=== PATIENT | male | born 2005 | race Caucasian/White ===

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

== ENCOUNTER 2025-06-12 19:52 | Emergency (ER) | payer BC, SELFPAY ==
[2025-06-12] VITALS (7 sets, daily range): BP systolic 124–170; BP diastolic 74–97; PULSE 68–100; RESP 15–20; TEMP 37.1; O2SAT 100; BMI 29.7
--- NOTE | 2025-06-12 21:18 | EKG12_ITS ---
Test Reason : DYSRHYTHMIA Blood Pressure : */* mmHG Vent. Rate : 73 BPM Atrial Rate : 73 BPM P-R Int : 142 ms QRS Dur : 86 ms QT Int : 360 ms P-R-T Axes : 45 16 23 degrees QTcB Int : 396 ms Normal sinus rhythm Normal ECG Confirmed by GLEN COLE, MERE ([id number]), editor & co founder SURESH WATT ([id number]) on 06/13/2025 8:08:43 AM Referred By: Confirmed By: MERE CARROLL MD
[2025-06-12 21:45] LABS: Hematocrit 48.4 % (40-54); Hemoglobin 16.8 g/dL (13.0-16.5); Immature Granulocytes Count 0.010 X10^3/uL (0.0-0.0); Mean Corp Hgb Conc 34.7 g/dL (32-36); Mean Corpuscular Volume 88.3 fL (80-94); Mean Platelet Vol. 10.6 fl (6.2-12.0); NRBC Flagged by Analyzer 0 % (0-5); Platelet Count 230 K/mm3 (150-450); RBC Distribution Width CV 12.0 % (11.6-14.6); RBC Distribution Width SD 39.0 fl (35.1-43.9); Red Blood Count 5.48 M/mm3 (4.6-6.2); White Blood Count 8.8 K/mm3 (4.4-11.0)
--- NOTE | 2025-06-12 21:50 | RAD_ITS ---
PROCEDURE: CHEST PA AND LATERAL 06/12/2025 REASON FOR EXAM: CHEST PAIN AND DIAPHORESIS WITH SHORTNESS OF BREAT TECHNIQUE: Procedure Code: RADCXR Modality: DX Procedure: CHEST PA AND LATERAL COMPARISON: 10/26/2019 FINDINGS: Lungs/Pleura: Clear. No focal consolidation, pneumothorax or pleural effusion. Heart/Mediastinum: Normal in size. No vascular congestion. Bones/Soft tissues: Unremarkable. Retained TURBINE ROOM ATTENDANT shunt tubing in the right chest wall. RAD/Chest PA and Lateral IMPRESSION: No acute cardiopulmonary disease. Reading Location: [id number]
[2025-06-12 22:06] LABS: Anion Gap 13 (5-15); BUN 11 mg/dL (4-19); BUN/Creat Ratio 9.6 RATIO (10-20); Calcium,Total 10.0 mg/dL (7.6-11.0); Carbon Dioxide 22.7 mmol/L (21.0-32.0); Chloride 102 mmol/L (98-108); Estimated Creatinine Clearance 120.51 ml/min (50-250); Glucose 98 mg/dL (70-99); Potassium 3.9 mmol/L (3.3-5.1)
--- NOTE | 2025-06-12 22:18 | EX.ED.DYSGE1 ---
HPI History of Present Illness Chief Complaint: General Illness Detail of Chief Complaint: Left-sided chest discomfort. Informant: patient and parent Onset/Context/Timing Onset: Days (Onset June 09) Context: Sudden Onset Timing: Continuous Quality: Discomfort unusual sensation Current Severity: Moderate Maximum Severity: Severe Worsened by: Nothing Relieved by: Nothing Associated Symptoms Associated Symptoms: Per mom diaphoresis shortness of breath while he was waiting in the waiting Narrative Narrative: Patient is a 20-year-old male. He has no significant past medical history. He denies history of pericarditis, myocarditis. There is family history of cardiac disease but no one's had an SD at less than the age of 55. He has no risk factors for cardiac disease. He has no history of VTE nor does he have any risk factors. He denies history of GERD, peptic ulcer disease or hiatal hernia. He denies upper respiratory tract infectious symptoms. He did endorse nausea. Prior similar symptoms: No Recent Illness/Hospitalization: No PFSH PFSH Medical History Asthma Spina bifida hx of norovirus Myelomeningocele Arnold-Chiari syndrome Home Medications Medication Instructions Recorded Last Taken Type ascorbic acid (vitamin C) 1,000 mg 1,000 mg PO DAILY 07/14/17 Unknown History tablet multivitamin 1 ea PO DAILY 07/14/17 Unknown History famotidine 40 mg tablet (Pepcid) 40 mg PO DAILY #14 tabs 06/12/25 Unknown Rx Allergy/AdvReac Type Severity Reaction Status Date / Time latex Allergy Rash Verified 06/12/25 19:53 Family History Other Diabetes Hypertension Surgical History peritoneal shunt placement Social History household members: family housing: house Smoking Status: Never smoker alcohol intake: never ROS ROS ED Constitutional Constitutional ED: Denies chills, fever(s), subjective, sweats or weight loss Eyes Eyes: Denies blurry vision or change in vision ENT ENT ED: Denies ear pain, rhinorrhea or sore throat Cardiovascular Cardiovascular: Reports chest pain; Denies orthopnea, palpitations, paroxysmal nocturnal dyspnea or racing heartbeat Respiratory/Chest Respiratory/Chest: Reports dyspnea; Denies cough, dyspnea on exertion, orthopnea or paroxysmal nocturnal dyspnea Gastrointestinal Gastrointestinal: Reports nausea; Denies abdominal pain, diarrhea, melena or vomiting Genitourinary Genitourinary ED: Denies dysuria, hematuria or urinary frequency Musculoskeletal Musculoskeletal: Denies arthralgias, back pain, myalgias or neck pain Integumentary Denies rash Neurologic Neurologic: Denies headache(s) or paresthesias Psychiatric Psychiatric: Denies anxiety or depression Endocrine Endocrinology: Denies cold intolerance or heat intolerance Hematologic/Lymphatic Hematologic/Lymphatic: Reports systems reviewed and no addt'l complaints, except as documented Allergic/Immunologic Allergic/Immunologic ED: Denies mouth swelling or tongue swelling EXAM Physical Exam Const Vital Signs: 06/12/25 19:52 06/12/25 19:54 06/12/25 20:25 Temperature 98.8 F 98.8 F Temperature Source Oral Oral Pulse Rate 100 100 80 Respiratory Rate 20 H 20 H 16 Respiratory Effort Respiratory Pattern Blood Pressure 170/88 H 170/88 H 139/97 H Blood Pressure Mean 115 115 111 Pulse Ox 100 100 Oxygen Delivery Method 06/12/25 20:25 06/12/25 20:54 06/12/25 21:00 Temperature 98.7 F 98.7 F 98.7 F Temperature Source Oral Oral Oral Pulse Rate 80 80 Respiratory Rate 16 17 Respiratory Effort Respiratory Pattern Blood Pressure 139/97 H 139/97 H Blood Pressure Mean 111 111 Pulse Ox 100 100 Oxygen Delivery Method Room Air Room Air 06/12/25 21:11 06/12/25 22:00 Temperature Temperature Source Pulse Rate 68 Respiratory Rate 15 Respiratory Effort Normal Respiratory Pattern Normal Blood Pressure 124/74 H Blood Pressure Mean 90 Pulse Ox Oxygen Delivery Method Positive well nourished and well developed Constitutional Narrative: Initial blood pressure was elevated. The blood pressure has decreased. He is not tachypneic nor is he tachycardic. General Appearance ED: well developed and NAD; Negative for cyanotic, diaphoretic or pallor HEENT Reports moist mucous membranes HEENT Narrative: Ears normal. Nares patent. Eyes PERRL and EOMs intact bilaterally General Eye ED: Negative for pale conjunctiva or scleral icterus Neck no lymphadenopathy, supple and no JVD Chest Wall inspection of chest normal and palpation of chest normal Resp normal respiratory effort and clear to auscultation bilaterally Cardio regular rate, regular rhythm, S1 normal heart sound, S2 normal heart sound and no murmurs GI normal to inspection, nondistended, normoactive bowel sounds, non-tender, non-distended and no masses; Negative for hepatosplenomegaly Back/Spine no CVA tenderness Extremity normal to inspection Neuro oriented x3 and CN's II-XII intact bilaterally Sensorium / Orientation: alert Psych mental status grossly normal Skin no rashes or lesions noted, no wounds and skin turgor normal General Skin Exam: Negative for jaundice or pallor MDM MDM MDM Narrative Medical decision making narrative: Differential would be cardiac etiology versus noncardiac. Noncardiac would be esophagitis, reflux, peptic ulcer disease, pulmonary PE is not a consideration since well score is less than 3 and he is PERC negative. Based on the EKG there is no evidence of pericarditis. Because of the mother describing diaphoresis shortness of breath when his pain got worse will obtain EKG, chest x-ray and cardiac markers Lab Data Attestation: I reviewed the patient's lab results. Lab results narrative: CBC is unremarkable. Hemoglobin slightly elevated 16.8. Electrolyte panel is normal. First troponin is normal. Labs: Laboratory Results - last 24 hr 06/12/25 21:32 WBC 8.8 RBC 5.48 Hgb 16.8 H Hct 48.4 MCV 88.3 MCH 30.7 MCHC 34.7 RDW Std Deviation 39.0 RDW Coeff of [place] 12.0 Plt Count 230 MPV 10.6 Immature Gran % (Auto) 0.100 Neut % (Auto) 68.6 Lymph % (Auto) 23.7 [place] % (Auto) 6.5 Eos % (Auto) 0.5 Baso % (Auto) 0.6 Absolute Neuts (auto) 6.0 Absolute Lymphs (auto) 2.08 Nucleated RBC % 0 Sodium 138 Potassium 3.9 Chloride 102 Carbon Dioxide 22.7 Anion Gap 13 BUN 11 Creatinine 1.14 Estim Creat Clear Calc 120.51 Est GFR (MDRD) Non-Af 93 BUN/Creatinine Ratio 9.6 L Glucose 98 Calcium 10.0 Troponin T High Sens 8 With 3 days of pain in her normal troponin this rules out cardiac special with a normal EKG. Will inform patient and mother that the significant things have been ruled out. This most likely represents GI pathology. Radiography Chest X-Ray - ED: 2 View, Read by ED Physician, Heart, Lungs, Mediastinum, Bony Structures and No Acute Disease Diagnostic Testing: Clinical Impression(s) from Imaging Studies Chest X-Ray 06/12/25 21:50 IMPRESSION: No acute cardiopulmonary disease. Reading Location: [facility] EKG Initial EKG: Attestation: I personally reviewed and interpreted this EKG as follows: Interpretation: Sinus Rhythm (Rate is 73. EKG is normal. MS interval is 142 ms. QRS duration 86 ms. QT duration Brent 60 ms. 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 Patient asked what he should take. I recommended antiacid. Mother asked if he could take ibuprofen. Since my concern is this is probably GI recommended that does not. Patient then inform me that an hour or 2 after his mother did give him ibuprofen his pain was worse. In light of this we will give him a GI cocktail to see if there is any improvement. Comments:: Patient was reassessed at 2300. His pain improved markedly after the GI cocktail. In light of this we will discharge with prescription for Pepcid. Discharge Plan Triage Chief Complaint: General Illness ED Provider: Patricio Daniel Dx/Rx/DC Orders Clinical Impression: Concern about peptic ulcer disease without diagnosis, Chest pain due to gastrointestinal reflux disease Instructions: ED GERD (Adult) Prescriptions: New famotidine [Pepcid] 40 mg tablet 40 mg PO DAILY Qty: 14 0RF No Action multivitamin 1 EACH tablet 1 ea PO DAILY ascorbic acid (vitamin C) 1,000 MG tablet 1,000 mg PO DAILY Primary Care Provider: Alexi Mercado Referrals: Alexi Mercado MD [Primary Care Provider, Family Practice] - 1 Week if not improving Print Language: Welsh Disposition Disposition: Home, Self Care
[2025-06-12 22:19] LABS: Troponin T High Sensitivity 8 ng/L (<=22)
[2025-06-12] MEDS: Lidocaine 2% Viscous15 ML UDC 15 ML PO (22:49)
== END 2025-06-12 23:08 | disposition home or self-care (01) ==
PROVIDERS: Emergency Provider Emergency Medicine; PCP Family Medicine; Visit Provider Emergency Medicine
DX: K21.9 Gastro-esophageal reflux disease without esophagitis (principal)
CPT/HCPCS: 71046; 80048; 84484; 85025; 93005; 99284; A4216